=== PATIENT | male | born 1985 | race Caucasian/White ===

== ENCOUNTER 2018-09-16 02:22 | Emergency (ER) | payer OTHER ==
[~2018-09-16] VITALS: Ht 162.6 cm; Wt 84.8 kg
[2018-09-16 02:28] VITALS: Ht 162.6 cm; Wt 84.8 kg
[2018-09-16 03:10] VITALS: BP 122/73
== END 2018-09-16 03:10 | disposition other institution (70) ==
LOC: ED 02:22
DX: Z02.89 Encounter for other administrative examinations (principal)